=== PATIENT | male | born 1975 | race Two or more races ===

== ENCOUNTER 2016-07-25 15:57 | Emergency (ER) | payer MEDICAID ==
[~2016-07-25] VITALS: Ht 152.4 cm; Wt 52.2 kg
[2016-07-25 17:43] VITALS: BP 118/82
== END 2016-07-25 17:44 | disposition home or self-care (01) ==
LOC: ER 16:00
DX: S09.90XA Unspecified injury of head, initial encounter (principal); S00.12XA Contusion of left eyelid and periocular area, initial encounter; V23.0XXA Motorcycle driver injured in collision with car, pick-up truck or van in nontraffic accident, initial encounter; Y93.89 Activity, other specified; Y92.413 State road as the place of occurrence of the external cause; Y99.8 Other external cause status
CPT/HCPCS: 70450; 71010; 73130; 99284; A4606; Z7610